=== PATIENT | male | born 1970 | race African-American/Black ===

== ENCOUNTER 2017-10-22 19:32 | Inpatient (IN) ==
[2017-10-22] MEDS ORDERED: KETOROLAC 30 MG/1 ML VIAL IV STA (22:05)
[2017-10-22] MEDS ORDERED: PANTOPRAZOLE 40 MG VIAL IV STA (22:05)
[2017-10-22] MEDS ORDERED: ONDANSETRON 4 MG/2 ML VIAL IV STA (22:05)
[2017-10-22] MEDS ORDERED: METOCLOPRAMIDE 10 MG/2 ML VIAL IV STA (22:05)
[2017-10-22] MEDS ORDERED: ORPHENADRINE 60 MG/2 ML VIAL IV STA (22:05)
[2017-10-22 22:28] LABS: Basophils % 0.3 % (0.0-0.8); Eosinophils # 0.2 10*3/uL (0.0-0.87); Eosinophils % 2.3 % (0.00-10.9); Hematocrit 48.2 VOL% (42.0-52.0); Hemoglobin 16.2 GM/DL (14.0-18.0); Immature Granulocytes % 0.3 %; Immature Granulocytes Absolute 0.02 #; Lymphocytes # 0.7 10*3/uL (1.4-4.0); Lymphocytes % 8.2 % (21.2-54.2); Mean Corpuscular HGB Conc 33.6 GM/DL (32-36); Mean Corpuscular Hemoglobin 32 PG (27-34); Mean Corpuscular Volume 94.1 FL (87-102); Monocytes # 0.4 10*3/uL (0.11-0.8); Monocytes % 5.2 % (1.7-12.7); Neutrophils # 6.6 10*3/uL (1.4-7.4); Neutrophils % 83.7 % (38.7-73.9); Platelet Count 172 T/CUMM (130-400); Red Blood Count 5.12 MC/CUMM (3.8-5.5); Red Cell Distribution Width 13.7 % (9.3-17.3); White Blood Count 7.9 T/CUMM (4-12)
[2017-10-22] MEDS ORDERED: METOCLOPRAMIDE 10 MG/2 ML VIAL ONE (22:37)
[2017-10-22] MEDS ORDERED: ORPHENADRINE 60 MG/2 ML VIAL ONE (22:37)
[2017-10-22] MEDS ORDERED: ONDANSETRON 4 MG/2 ML VIAL ONE (22:37)
[2017-10-22] MEDS ORDERED: PANTOPRAZOLE 40 MG VIAL IV ONE (22:37)
[2017-10-22] MEDS ORDERED: KETOROLAC 30 MG/1 ML VIAL ONE (22:38)
[2017-10-22 22:46] LABS: Albumin 3.7 G/DL (3.4-5.0); Bilirubin,Total 0.5 MG/DL (0.2-1.0); Calcium 8.2 MG/DL (8.5-10.1); Osmolality,Calculated 281.8 MOS/KG (273-304); Total Protein 9.4 G/DL (6.4-8.3)
[2017-10-22 22:49] LABS: Potassium 6.8 MMOL/L (3.5-5.1)
[2017-10-22] MEDS ORDERED: DEXTROSE 50% 25 GM/50 ML VIAL IV STA (22:51)
[2017-10-22] MEDS ORDERED: ALBUTEROL NEB SOLN 5 MG/ML 20 ML/BOTTLE CONT NEB STA (22:51)
[2017-10-22] MEDS ORDERED: CALCIUM CHLORIDE 1,000 MG/10 ML SYRINGE IV STA (22:51)
[2017-10-22] MEDS ORDERED: INSULIN REGULAR 100 UNIT/ML IV STA (22:51)
[2017-10-22] MEDS ORDERED: DEXTROSE 50% 25 GM/50 ML SYRINGE IV ONE (23:08)
[2017-10-22] MEDS ORDERED: CALCIUM CHLORIDE 1,000 MG/10 ML SYRINGE IV ONE (23:08)
[2017-10-22] MEDS ORDERED: INSULIN REGULAR 100 UNIT/ML ONE (23:12)
[2017-10-22] MEDS ORDERED: FUROSEMIDE 100 MG/10 ML VIAL IV STA (23:36)
[2017-10-22] MEDS ORDERED: SODIUM CHLORIDE 0.9% 500 ML IV SCH (23:45)
[2017-10-22] MEDS ORDERED: ONDANSETRON 4 MG/2 ML VIAL IV PRN (23:49)
[2017-10-22] MEDS ORDERED: MORPHINE 4 MG/1 ML VIAL IV PRN (23:49)
[2017-10-22] MEDS ORDERED: DEXTROSE 50% 25 GM/50 ML VIAL IV PRN (23:53)
[2017-10-22] MEDS ORDERED: GLUCAGON 1 MG VIAL IM PRN (23:53)
[2017-10-22] MEDS ORDERED: SODIUM PHOSPHATE ENEMA 133 ML BOTTLE RECTAL ONE (23:55)
[2017-10-23] MEDS ORDERED: FUROSEMIDE 100 MG/10 ML VIAL ONE (00:29)
[2017-10-23] MEDS: INSULIN LISPRO 100 UNIT/ML SUBCUT SCH ×4 (02:59→17:12)
[2017-10-23 04:41] LABS: Basophils % 0.2 % (0.0-0.8); Eosinophils # 0.2 10*3/uL (0.0-0.87); Eosinophils % 3.3 % (0.00-10.9); Hematocrit 40.6 VOL% (42.0-52.0); Hemoglobin 14.1 GM/DL (14.0-18.0); Immature Granulocytes % 0.4 %; Immature Granulocytes Absolute 0.02 #; Lymphocytes # 0.7 10*3/uL (1.4-4.0); Lymphocytes % 14.9 % (21.2-54.2); Mean Corpuscular HGB Conc 34.7 GM/DL (32-36); Mean Corpuscular Hemoglobin 32 PG (27-34); Mean Corpuscular Volume 92.5 FL (87-102); Mean Platelet Volume 11.3 FL (9.6-12.0); Monocytes # 0.4 10*3/uL (0.11-0.8); Neutrophils # 3.6 10*3/uL (1.4-7.4); Neutrophils % 73.2 % (38.7-73.9); Platelet Count 143 T/CUMM (130-400); Red Blood Count 4.39 MC/CUMM (3.8-5.5); Red Cell Distribution Width 13.7 % (9.3-17.3); White Blood Count 4.9 T/CUMM (4-12)
[2017-10-23 05:06] LABS: Calcium 7.8 MG/DL (8.5-10.1)
[2017-10-23 05:07] LABS: Osmolality,Calculated 287.4 MOS/KG (273-304); Potassium 4.7 MMOL/L (3.5-5.1); Risk Ratio 4.91
[2017-10-23] MEDS ORDERED: BISACODYL 5 MG TABLET PO ONE (10:50)
[2017-10-23] MEDS ORDERED: metFORMIN 500 MG TABLET PO SCH (11:30)
[2017-10-23] MEDS: POLYETHYLENE GLYCOL POWDER 17 GM PACK PO SCH (11:56)
[2017-10-23] MEDS: CARVEDILOL 25 MG TABLET PO SCH ×2 (11:57→21:02)
[2017-10-23] MEDS: busPIRone 10 MG TABLET PO SCH ×2 (11:57→21:02)
[2017-10-23] MEDS: sitaGLIPtin 100 MG TABLET PO SCH (11:57)
[2017-10-23] MEDS: CYPROHEPTADINE 4 MG TABLET PO SCH (11:58)
[2017-10-23] MEDS: amLODIPine 10 MG TABLET PO SCH (11:58)
[2017-10-23] MEDS: PREGABALIN 75 MG CAPSULE PO SCH ×2 (11:58→21:02)
[2017-10-23] MEDS: PANTOPRAZOLE 40 MG TABLET PO SCH (11:58)
[2017-10-23] MEDS: MULTIVITAMIN (BEROCCA) TABLET PO SCH (12:00)
[2017-10-23] MEDS: CALCIUM ACETATE 667 MG CAPSULE PO SCH ×2 (12:00→17:05)
[2017-10-24] MEDS: INSULIN LISPRO 100 UNIT/ML SUBCUT SCH ×3 (01:28→13:50)
[2017-10-24] MEDS: PANTOPRAZOLE 40 MG TABLET PO SCH (09:11)
[2017-10-24] MEDS: PREGABALIN 75 MG CAPSULE PO SCH (09:11)
[2017-10-24] MEDS: MULTIVITAMIN (BEROCCA) TABLET PO SCH (09:11)
[2017-10-24] MEDS: CYPROHEPTADINE 4 MG TABLET PO SCH (09:11)
[2017-10-24] MEDS: amLODIPine 10 MG TABLET PO SCH (09:12)
[2017-10-24] MEDS: CALCIUM ACETATE 667 MG CAPSULE PO SCH ×2 (09:12→13:50)
[2017-10-24] MEDS: CARVEDILOL 25 MG TABLET PO SCH (09:12)
[2017-10-24] MEDS: sitaGLIPtin 100 MG TABLET PO SCH (09:12)
[2017-10-24] MEDS: POLYETHYLENE GLYCOL POWDER 17 GM PACK PO SCH (09:12)
[2017-10-24] MEDS: busPIRone 10 MG TABLET PO SCH (09:12)
[2017-10-24 12:37] VITALS: BP 98/49
== END 2017-10-24 13:23 | disposition home or self-care (01) | DRG 391 ==
LOC: N.ED 19:32 → N.EDINP 23:43 → N.TELES 10-23 00:16
PROVIDERS: ADMIT Internal Medicine; ATTEND Internal Medicine

== ENCOUNTER 2020-06-06 02:17 | Observation (INO) ==
[2020-06-06] MEDS ORDERED: ACETAMINOPHEN 325 MG TABLET PO PRN (04:06)
[2020-06-06] MEDS ORDERED: GLUCAGON 1 MG VIAL IM PRN (04:06)
[2020-06-06] MEDS ORDERED: DEXTROSE 50% 25 GM/50 ML VIAL IV PRN (04:06)
[2020-06-06] MEDS ORDERED: hydrALAZINE 20 MG/1 ML VIAL IV PRN (04:12)
[2020-06-06] MEDS: NITROGLYCERIN 2% OINT 1 INCH/GM PACK TOP SCH ×3 (05:44→19:17)
[2020-06-06 06:56] LABS: Basophils # 0.1 10*3/uL (0.0-0.2); Basophils % 0.6 % (0.0-0.8); Eosinophils # 0.2 10*3/uL (0.0-0.87); Eosinophils % 1.7 % (0.00-10.9); Hematocrit 25.4 VOL% (42.0-52.0); Hemoglobin 8.3 GM/DL (14.0-18.0); Immature Granulocytes % 0.3 %; Immature Granulocytes Absolute 0.03 #; Lymphocytes # 1.2 10*3/uL (1.4-4.0); Lymphocytes % 11.4 % (21.2-54.2); Mean Corpuscular HGB Conc 32.7 GM/DL (32-36); Mean Corpuscular Volume 95.1 FL (87-102); Mean Platelet Volume 10.1 FL (9.6-12.0); Monocytes % 5.8 % (1.7-12.7); Neutrophils % 80.2 % (38.7-73.9); Platelet Count 244 T/CUMM (130-400); Red Blood Count 2.67 MC/CUMM (3.8-5.5); Red Cell Distribution Width 14.6 % (9.3-17.3); White Blood Count 10.1 T/CUMM (4-12)
[2020-06-06 07:25] LABS: Alanine Aminotransferase < 9 U/L (16-61); Albumin 2.6 G/DL (3.4-5.0); Alkaline Phosphatase 171 U/L (45-117); Aspartate Amino Transferase 39 U/L (0-37); Blood Urea Nitrogen 75 MG/DL (7-18); Estimated Glom Filtration Rate 5 ML/MIN; Glucose 239 MG/DL (74-106); Total Protein 7.4 G/DL (6.4-8.3)
[2020-06-06] MEDS ORDERED: PANTOPRAZOLE 40 MG TABLET PO SCH (09:00)
[2020-06-06] MEDS: INSULIN REGULAR 100 UNIT/ML SUBCUT SCH ×4 (09:04→20:22)
[2020-06-06] MEDS ORDERED: ENOXAPARIN 30 MG/0.3 ML SYRINGE SUBCUT SCH (10:00)
[2020-06-06] MEDS ORDERED: ceFAZolin 2,000 MG in PREMIX 1 EACH IV PRN (12:33)
[2020-06-06 15:59] LABS: INR 1.1; PT Patient Result 11.6 SECS (9.8-11.9); Partial Thromboplastin Time 29.6 SECS (23.9-33.8)
[2020-06-06] MEDS: SEVELAMER CARBONATE 800 MG TABLET PO SCH ×2 (16:42→20:22)
[2020-06-06 20:49] VITALS: BP 188/90
[2020-06-06] MEDS ORDERED: carvediloL 12.5 MG TABLET PO SCH (21:00)
[2020-06-07] MEDS ORDERED: MULTIVITAMIN (BEROCCA) TABLET PO SCH (09:00)
== END 2020-06-06 20:43 | disposition home or self-care (01) ==
LOC: N.TELEN → SUATTDRO 03:34
PROVIDERS: ADMIT Internal Medicine; ATTEND Internal Medicine

== ENCOUNTER 2022-08-23 19:40 | Observation (INO) ==
[2022-08-23] MEDS ORDERED: SODIUM CHLORIDE 0.9% 1,000 ML IV STA (22:13)
[2022-08-23] MEDS ORDERED: ONDANSETRON 4 MG/2 ML VIAL IV ONE (22:39)
[2022-08-23] MEDS ORDERED: MORPHINE 2 MG/1 ML SYRINGE IV STA (22:39)
[2022-08-23] MEDS ORDERED: hydrALAZINE 20 MG/1 ML VIAL IV STA (22:40)
[2022-08-23] MEDS ORDERED: SODIUM CHLORIDE 0.9% 500 ML IV STA (22:40)
[2022-08-23 23:35] LABS: Basophils % 0.6 % (0.0-0.8); Eosinophils % 0.1 % (0.00-10.9); Hematocrit 32.9 VOL% (42.0-52.0); Hemoglobin 10.6 GM/DL (14.0-18.0); Immature Granulocytes % 0.4 %; Immature Granulocytes Absolute 0.03 #; Lymphocytes # 0.8 10*3/uL (1.4-4.0); Lymphocytes % 11.3 % (21.2-54.2); Mean Corpuscular HGB Conc 32.2 GM/DL (32-36); Mean Corpuscular Volume 95.9 FL (87-102); Monocytes # 0.8 10*3/uL (0.11-0.8); Neutrophils % 76.6 % (38.7-73.9); Platelet Count 136 T/CUMM (130-400); Red Blood Count 3.43 MC/CUMM (3.8-5.5); Red Cell Distribution Width 14.3 % (9.3-17.3); White Blood Count 6.99 T/CUMM (4-12)
[2022-08-23 23:54] LABS: Albumin 3.2 G/DL (3.4-5.0); Bilirubin,Total 0.4 MG/DL (0.20-1.00); Calcium 7.5 MG/DL (8.5-10.1); Osmolality,Calculated 303.8 MOS/KG (273-304); Total Protein 7.4 G/DL (6.4-8.2)
[2022-08-23 23:57] LABS: Potassium 6.6 MMOL/L (3.5-5.1)
[2022-08-24] MEDS ORDERED: ASPIRIN EC 325 MG TABLET PO STA (00:04)
[2022-08-24] MEDS ORDERED: NITROGLYCERIN SL 0.4 MG TABLET SL STA (00:04)
[2022-08-24] MEDS ORDERED: INSULIN REGULAR 100 UNIT/ML IV STA (00:41)
[2022-08-24] MEDS ORDERED: DEXTROSE 50% 25 GM/50 ML VIAL IV STA (00:41)
[2022-08-24] MEDS ORDERED: DEXTROSE 50% 25 GM/50 ML SYRINGE IV STA (00:43)
[2022-08-24] MEDS ORDERED: NICOTINE 21 MG/24 HR PATCH TRANSDERM PRN (02:41)
[2022-08-24] MEDS ORDERED: ACETAMINOPHEN 325 MG TABLET PO PRN (02:41)
[2022-08-24] MEDS ORDERED: ONDANSETRON 4 MG/2 ML VIAL IV PRN (02:41)
[2022-08-24] MEDS ORDERED: hydrALAZINE 20 MG/1 ML VIAL IV PRN (02:41)
[2022-08-24] MEDS ORDERED: hydrALAZINE 20 MG/1 ML VIAL IV STA (02:45)
[2022-08-24] MEDS ORDERED: CALCIUM GLUCONATE RIDER 1,000 MG/50 ML PREMIX IV ONE (02:52)
[2022-08-24] MEDS ORDERED: cloNIDine 0.1 MG TABLET PO STA (03:17)
[2022-08-24] MEDS ORDERED: amLODIPine 5 MG TABLET PO STA (03:19)
[2022-08-24] MEDS ORDERED: SODIUM ZIRCONIUM CYCLOSILICATE 10 GM PACK PO ONE (03:25)
[2022-08-24 04:39] LABS: Basophils % 0.6 % (0.0-0.8); Eosinophils % 0.4 % (0.00-10.9); Hematocrit 32.9 VOL% (42.0-52.0); Hemoglobin 10.8 GM/DL (14.0-18.0); Immature Granulocytes % 0.4 %; Immature Granulocytes Absolute 0.03 #; Lymphocytes # 1.3 10*3/uL (1.4-4.0); Lymphocytes % 19.4 % (21.2-54.2); Mean Corpuscular HGB Conc 32.8 GM/DL (32-36); Mean Corpuscular Volume 93.7 FL (87-102); Mean Platelet Volume 10.6 FL (9.6-12.0); Monocytes # 1.2 10*3/uL (0.11-0.8); Monocytes % 16.6 % (1.7-12.7); Neutrophils % 62.6 % (38.7-73.9); Platelet Count 130 T/CUMM (130-400); Red Blood Count 3.51 MC/CUMM (3.8-5.5); Red Cell Distribution Width 14.3 % (9.3-17.3); White Blood Count 6.92 T/CUMM (4-12)
[2022-08-24 04:56] LABS: Calcium 8.6 MG/DL (8.5-10.1); Osmolality,Calculated 303.4 MOS/KG (273-304); Potassium 4.8 MMOL/L (3.5-5.1)
[2022-08-24 04:58] LABS: Band Neutrophils 1 % (0-10); Eosinophils 1 % (0-10); Lymphocytes 22 % (20-55); Microcytosis Slight; Ovalocytes Slight; Total Cells Counted 100
[2022-08-24 04:59] LABS: Platelet Estimate Adequate
[2022-08-24] MEDS: INSULIN LISPRO 100 UNIT/ML SUBCUT SCH ×4 (08:35→20:43)
[2022-08-24] MEDS ORDERED: PANTOPRAZOLE 40 MG TABLET PO SCH (09:00)
[2022-08-24] MEDS ORDERED: amLODIPine 2.5 MG TABLET PO SCH (09:00)
[2022-08-24] MEDS: SEVELAMER CARBONATE 800 MG TABLET PO SCH ×3 (11:26→17:20)
[2022-08-25 07:52] LABS: Basophils % 0.9 % (0.0-0.8); Eosinophils # 0.1 10*3/uL (0.0-0.87); Eosinophils % 2.9 % (0.00-10.9); Hematocrit 35.9 VOL% (42.0-52.0); Hemoglobin 11.7 GM/DL (14.0-18.0); Immature Granulocytes % 0.3 %; Immature Granulocytes Absolute 0.01 #; Lymphocytes % 27.9 % (21.2-54.2); Mean Corpuscular HGB Conc 32.6 GM/DL (32-36); Mean Corpuscular Volume 95.7 FL (87-102); Mean Platelet Volume 10.9 FL (9.6-12.0); Monocytes # 0.6 10*3/uL (0.11-0.8); Monocytes % 17.4 % (1.7-12.7); Neutrophils % 50.6 % (38.7-73.9); Platelet Count 150 T/CUMM (130-400); Red Blood Count 3.75 MC/CUMM (3.8-5.5); Red Cell Distribution Width 14.2 % (9.3-17.3)
[2022-08-25] MEDS ORDERED: SODIUM CHLORIDE 0.9% 1,000 ML IV SCH (08:00)
[2022-08-25] MEDS: INSULIN LISPRO 100 UNIT/ML SUBCUT SCH (08:05)
[2022-08-25 08:20] LABS: Calcium 8.4 MG/DL (8.5-10.1); Osmolality,Calculated 293.1 MOS/KG (273-304); Potassium 5.1 MMOL/L (3.5-5.1)
[2022-08-25 08:22] LABS: Eosinophils 1 % (0-10); Lymphocytes 29 % (20-55); Total Cells Counted 100
[2022-08-25 08:23] LABS: Platelet Estimate Normal
[2022-08-25] MEDS ORDERED: amLODIPine 5 MG TABLET PO SCH (09:00)
[2022-08-25] MEDS ORDERED: propofoL 200 MG/20 ML VIAL IV ONE (09:28)
[2022-08-25] MEDS ORDERED: LIDOCAINE 2% 5 ML VIAL ONE (09:28)
[2022-08-25 10:15] VITALS: BP 132/78
== END 2022-08-25 11:34 | disposition left against medical advice (07) ==
LOC: N.EDINP 19:40 → N.ED 19:40 → SUATTDRO 08-24 02:41 → N.TELEN 08-24 06:36
PROVIDERS: ADMIT Family Medicine; ATTEND Internal Medicine